=== PATIENT | female | born 1970 | race Caucasian/White ===

== ENCOUNTER 2020-12-07 23:04 | Inpatient (IN) | payer OTHER ==
[~2020-12-07] VITALS: Ht 162.6 cm; Wt 85.7 kg
[~2020-12-07 23:04] MED LIST: CLONAZEPAM0.5 MG PO; CODE1TAB37 PO; TYLENOL-CODEINE1 TAB PO; V-C FORTE CAPSUL1 MG PO; WELLBUTRIN XL300 MG PO; ZOLOFT25 MG PO
--- NOTE | 2020-12-07 23:30 | NUR ---
PTE REFIERE SONNY DOLOR ABDOMINAL VOMITOS Y NAUSEAS SE VANIA S/V Y SE UBICA EN AREA DE OBSERVACION
--- NOTE | 2020-12-08 01:00 | NUR ---
MISS. PALACIOS ORIENTA A PACIENTE SOBRE TRATAMIENTO. KARAN MUESTRAS DE LABORATORIO ORDENADAS. CANALIZA A PACIENTE CON AREA DE VENOPUNCION CON AREA BAUTISTA DE EDEMA O ENROJECIMIENTO. ADMINISTRA MEDICAMENTOS ORDENADOS. SE COLOCA EN JANI CON BARANDAS ELEVADAS Y SEGURAS. SE MANTIENE EN OBSERVACION POR CAMBIOS.
--- NOTE | 2020-12-08 04:54 | NUR ---
DR. BERG ORDANANYA CT ABDOMEN Y PELVICO SIN CONTRASTE, SE NOTIFICA A MR. GRAY PERSONAL DE CT.
--- NOTE | 2020-12-08 07:03 | NUR ---
SE RECIBE PACIENTE ALERTA Y ORIENTADO EN TIEMPO LUGAR Y PERSONA. CON BARANDAS ELEVADAS Y FRENOS AJUSTADOS POR SEGURIDAD. CON VENOPUNCION PATENTE, BAUTISTA DE ERITEMA Y EDEMA, RECIBIENDO AL MOMENTO R/L NSS 1000ML A 150ML/HR. PENDIENTE LECTURA DE ESTUDIO CT. SE MANTIENE PACIENTE EN OBSERVACION POR CAMBIOS EN ALLRED CONDICION.
--- NOTE | 2020-12-08 09:38 | NUR ---
RN CH ORIENTA A PTE SOBRE TRATAMIENTO A SEGUIR, MICHEAL REFIERE ENTENDER. LE COLECTA MUESTRA SAMUEL ORDEN MEDICA UTLIZANDO MEDIDAS ASEPTICAS. MEDICO DE TURNO NOTIFICA CONSULTA
== END 2020-12-09 14:01 | disposition home or self-care (01) | DRG 343 ==
LOC: ER 23:04 → O/R 12-08 10:19 → SEC-K 12-08 10:19 → O/R 12-08 14:16 → SURH 12-08 20:05
PROVIDERS: ADMIT Surgery; ATTEND Surgery
PROC: 0DTJ4ZZ Resection of Appendix, Percutaneous Endoscopic Approach (ICD-10-PCS; principal; 2020-12-08 15:15)
DX: K35.890 Other acute appendicitis without perforation or gangrene (principal); Z20.822 Contact with and (suspected) exposure to COVID-19

== ENCOUNTER 2021-02-15 02:57 | Emergency (ER) | payer OTHER ==
[~2021-02-15] VITALS: Ht 162.6 cm; Wt 81.6 kg
[2021-02-15] MEDS ORDERED: CRESTOR10 MG PO (03:05)
== END 2021-02-15 13:37 | disposition designated cancer center or children's hospital (05) ==
LOC: ER 02:57
DX: N13.2 Hydronephrosis with renal and ureteral calculous obstruction (principal); K57.30 Diverticulosis of large intestine without perforation or abscess without bleeding; Z03.818 Encounter for observation for suspected exposure to other biological agents ruled out

== ENCOUNTER 2022-06-24 14:00 | Emergency (ER) | payer OTHER ==
[~2022-06-24] VITALS: Ht 162.6 cm; Wt 77.1 kg
[~2022-06-24 14:00] MED LIST changes: +CRESTOR10 MG PO
== END 2022-06-24 20:21 | disposition home or self-care (01) ==
LOC: ER 14:00
DX: R10.31 Right lower quadrant pain (principal); Z88.8 Allergy status to other drugs, medicaments and biological substances; K57.32 Diverticulitis of large intestine without perforation or abscess without bleeding

== ENCOUNTER 2022-07-05 23:33 | Emergency (ER) | payer OTHER ==
[~2022-07-05] VITALS: Ht 162.6 cm; Wt 73.9 kg
== END 2022-07-06 02:16 ==
LOC: ER 23:33
DX: N20.0 Calculus of kidney (principal); R10.9 Unspecified abdominal pain; Z88.2 Allergy status to sulfonamides; Z88.6 Allergy status to analgesic agent

== ENCOUNTER 2022-09-25 19:09 | Emergency (ER) | payer OTHER ==
[~2022-09-25] VITALS: Ht 162.6 cm; Wt 77.1 kg
[2022-09-25] MEDS ORDERED: ROSUVASTATIN CA10 MG PO (20:19)
== END 2022-09-25 20:58 | disposition home or self-care (01) ==
LOC: ER 19:09
DX: S61.320A Laceration with foreign body of right index finger with damage to nail, initial encounter (principal); W26.0XXA Contact with knife, initial encounter; Y93.G3 Activity, cooking and baking; Y92.010 Kitchen of single-family (private) house as the place of occurrence of the external cause; Z88.2 Allergy status to sulfonamides; Z88.6 Allergy status to analgesic agent

== ENCOUNTER 2022-10-04 18:29 | Emergency (ER) | payer OTHER ==
[~2022-10-04] VITALS: Ht 162.6 cm; Wt 77.1 kg
[~2022-10-04 18:29] MED LIST changes: +ROSUVASTATIN CA10 MG PO
== END 2022-10-04 18:57 | disposition home or self-care (01) ==
LOC: ER 18:29
DX: Z48.02 Encounter for removal of sutures (principal)

== ENCOUNTER → 2022-11-01 | Day surgery (SDC) | payer OTHER ==
[~2022-11-01] VITALS: Ht 162.6 cm; Wt 78.9 kg
[~2022-11-01] MED LIST changes: +MIRALAX17 GM PO; +NEURONTIN300 MG PO; +OZEMPIC0.25 MG/0.; +TRAMADOL HCL50 MG PO; +TYLENOL ARTHRI650 MG PO
== END | disposition home or self-care (01) ==
LOC: ADM 10-26 08:30 → CIR.AMB 05:48
PROVIDERS: ATTEND Surgery
DX: K43.0 Incisional hernia with obstruction, without gangrene (principal); Z53.8 Procedure and treatment not carried out for other reasons

== ENCOUNTER 2022-11-15 07:14 | Day surgery (SDC) | payer OTHER ==
[~2022-11-15 07:14] MED LIST changes: -MIRALAX17 GM PO; -NEURONTIN300 MG PO; -TRAMADOL HCL50 MG PO; -TYLENOL ARTHRI650 MG PO
[2022-11-15] MEDS ORDERED: NEURONTIN300 MG PO ×2 (11:24)
[2022-11-15] MEDS ORDERED: TYLENOL ARTHRI650 MG PO ×2 (11:24)
[2022-11-15] MEDS ORDERED: TRAMADOL HCL50 MG PO ×2 (11:24)
[2022-11-15] MEDS ORDERED: MIRALAX17 GM PO ×2 (11:24)
== END 2022-11-15 15:50 | disposition home or self-care (01) ==
LOC: CIR.AMB 07:14
PROVIDERS: ATTEND Surgery
DX: K43.0 Incisional hernia with obstruction, without gangrene (principal); Z88.6 Allergy status to analgesic agent; Z88.2 Allergy status to sulfonamides; Z20.822 Contact with and (suspected) exposure to COVID-19

== ENCOUNTER 2023-01-20 10:38 | Emergency (ER) | payer OTHER ==
[~2023-01-20] VITALS: Ht 162.6 cm; Wt 74.8 kg
[~2023-01-20 10:38] MED LIST changes: +MIRALAX17 GM PO; +NEURONTIN300 MG PO; +TRAMADOL HCL50 MG PO; +TYLENOL ARTHRI650 MG PO
[2023-01-20 13:20] LABS: URINE APPEARANCE Clear; URINE BILIRRUBIN Negative (NEGATIVE); URINE BLOOD NHT; URINE COLOR Yellow; URINE GLUCOSE Negative (NEGATIVE); URINE LEUKOCYTE Small; URINE NITRATE Negative; URINE PROTEIN Negative (NEGATIVE); URINE UROBILINOGEN 0.2 E.U./dl
[2023-01-20 13:23] LABS: URINE BACTERIA 1310.2 uL (0.0-1933); URINE EPITHELIAL CELLS 2.3 uL (0.0-38.8)
[2023-01-20 13:40] LABS: HEMOGLOBIN 12.9 g/dL (12.0-15.00); MEAN CELL VOLUME 89.4 fL (80.00-100.00); MEAN CORPUSCULAR HEMOGLOBIN 30.5 pg (27.00-32.0); MEAN CORPUSCULAR HGB CONC 34.1 g/dl (32.0-36.0); PLATELET COUNT 284 K/uL (150-450); RED BLOOD COUNT 4.25 M/uL (4.00-6.00); RED CELL DISTRIBUTION WIDTH 14.3 % (11.5-14.5)
[2023-01-20 14:05] LABS: ALBUMIN 3.8 gm/dL (3.4-5.0); BILIRUBIN TOTAL 0.54 mg/dL (0.3-1.2); CALCIUM 9.2 mg/dL (8.5-10.1); CREATININE SERUM 1.01 mg/dL (0.55-1.02); GFR 57.56; GLOBULINA 4.4 G/DL (2.4-3.5); POTASSIUM 3.71 mEq/L (3.5-5.1); TOTAL PROTEIN 8.2 gm/dL (6.4-8.2)
== END 2023-01-20 19:03 | disposition home or self-care (01) ==
LOC: ER 10:38
PROVIDERS: General Practice
DX: N20.0 Calculus of kidney (principal)